=== PATIENT | male | born 1975 | race Asian ===

== ENCOUNTER 2019-09-02 13:20 | Inpatient (IN) | payer OTHER ==
[~2019-09-02] VITALS: Ht 167.6 cm; Wt 79.5 kg
[2019-09-02] MEDS ORDERED: ACETAMINOPHEN 500 MG TABLET ONE (14:15)
[2019-09-02] MEDS ORDERED: SODIUM CHLORIDE FLUSH 10ML SYR IVF ONE (14:30)
[2019-09-02] MEDS ORDERED: ACETAMINOPHEN 500 MG TABLET PO ONE (14:30)
[2019-09-02 14:42] LABS: BASOPHILS # (AUTO) 0.03 x10^3/uL (0-0.1); BASOPHILS % (AUTO) 0 % (0-1); EOSINOPHILS # (AUTO) 0.01 x10^3/uL (0-0.4); EOSINOPHILS % (AUTO) 0 % (1-7); LYMPHOCYTES # (AUTO) 1.55 x10^3/uL (1-3.4); LYMPHOCYTES % (AUTO) 13 % (22-44); MD NO; MEAN CORPUSCULAR HEMOGLOBIN 26.8 pg (27.5-34.5); MEAN CORPUSCULAR HGB CONC 32.7 g/dL (33.2-36.2); MEAN CORPUSCULAR VOLUME 81.8 fL (81-97); MEAN PLATELET VOLUME 9.4 fL (7.4-10.4); MONOCYTES # (AUTO) 0.91 x10^3/uL (0.2-0.8); MONOCYTES % (AUTO) 8 % (2-9); NEUTROPHILS # (AUTO) 9.19 x10^3/uL (1.8-6.8); NEUTROPHILS % (AUTO) 79 % (42-75); PLATELET COUNT 255 x10^3/uL (130-400); RED CELL DISTRIBUTION WIDTH 12.6 % (9.4-14.8)
[2019-09-02] MEDS ORDERED: METF500T17 PO (14:44)
[2019-09-02 14:53] LABS: ALANINE AMINOTRANSFERASE 43 U/L (12-78); ALBUMIN 3.1 g/dL (3.4-5.0); ANION GAP 11 mmol/L (5-15); CALCIUM 8.7 mg/dL (8.5-10.1); CHLORIDE 102 mmol/L (98-107); CREATININE 1.68 mg/dL (0.7-1.3)
[2019-09-02 14:58] LABS: ALKALINE PHOSPHATASE 57 U/L (45-117); BILIRUBIN,TOTAL 0.5 mg/dL (0.2-1.0); TOTAL PROTEIN 8.4 g/dL (6.4-8.2); TROPONIN I < 0.015 ng/mL (0.000-0.045)
--- NOTE | 2019-09-02 16:15 | NUR ---
TO CT VIA [facility]
--- NOTE | 2019-09-02 16:59 | NUR ---
HOSPITALIST AT BEDSIDE
[2019-09-02] MEDS ORDERED: SODIUM CHLORIDE FLUSH 10ML SYR IVF PRN (17:00)
[2019-09-02] MEDS ORDERED: AZITHROMYCIN 500 MG in SODIUM CHLORIDE 0.9% 250 ML IVPB ONE (17:00)
[2019-09-02] MEDS ORDERED: CEFTRIAXONE PMX 1GM/50ML 50 ML IVPB ONE (17:00)
[2019-09-02] MEDS ORDERED: CEFTRIAXONE PMX 1GM/50ML 50 ML ONE (17:08)
[2019-09-02] MEDS ORDERED: ONDANSETRON 2MG/ML, 2ML IVPush PRN (17:30)
[2019-09-02] MEDS ORDERED: OXYcodone/APAP 5/325MG TABLET PO PRN (17:30)
[2019-09-02] MEDS ORDERED: ENOXAPARIN 40 MG/0.4 ML SQ SCH ×2 (17:30→19:00)
[2019-09-02] MEDS ORDERED: ACETAMINOPHEN 325 MG TABLET PO PRN (17:30)
[2019-09-02] MEDS ORDERED: morphine SULFATE 10 MG/ML, 1ML IVPush PRN (17:30)
--- NOTE | 2019-09-02 17:41 | NUR ---
PT [facility]NTO HOSPITAL BED AND ANTIBIOTICS STARTED AFTER BLOOD CULTURES X2
[2019-09-02] MEDS ORDERED: DOXYCYCLINE 100MG TABLET ONE (18:08)
[2019-09-02] MEDS ORDERED: ENOXAPARIN 40 MG/0.4 ML ONE (18:09)
[2019-09-02] MEDS: SODIUM CHLORIDE 0.9% 1,000 ML IV SCH ×2 (18:13→22:13)
--- NOTE | 2019-09-02 19:07 | NUR ---
REPORT TO TO TODD YOUNG
--- NOTE | 2019-09-02 19:47 | NUR ---
pt resting in bed, nad, respirations even and unlabored, monitors in place, call light within reach. provided pt with bsc, medicated per mar. awaiting room for admit
--- NOTE | 2019-09-02 20:06 | NUR ---
attempted to call report, notified that rn will call back for report
[2019-09-02 20:41] VITALS: BP 129/77
[2019-09-02] MEDS: DOXYCYCLINE 100MG CAP PO SCH (21:38)
[2019-09-02] MEDS: INSULIN LISPRO 100 UNITS/ML, PEN SQ-INSULIN SCH (22:13)
[2019-09-02 23:42] LABS: RAPID INFLUENZA A Negative (Negative); RAPID INFLUENZA B Negative (Negative)
[2019-09-03 01:20] VITALS: BP 141/95
[2019-09-03] MEDS ORDERED: ZINC SULFATE 220 MG CAPSULE PO SCH (06:00)
[2019-09-03 06:13] LABS: BASOPHILS # (AUTO) 0.04 x10^3/uL (0-0.1); BASOPHILS % (AUTO) 0 % (0-1); EOSINOPHILS % (AUTO) 0 % (1-7); LYMPHOCYTES # (AUTO) 1.81 x10^3/uL (1-3.4); LYMPHOCYTES % (AUTO) 19 % (22-44); MD NO; MEAN CORPUSCULAR HEMOGLOBIN 27.4 pg (27.5-34.5); MEAN CORPUSCULAR HGB CONC 33.3 g/dL (33.2-36.2); MEAN CORPUSCULAR VOLUME 82.2 fL (81-97); MEAN PLATELET VOLUME 8.8 fL (7.4-10.4); MONOCYTES # (AUTO) 0.94 x10^3/uL (0.2-0.8); MONOCYTES % (AUTO) 10 % (2-9); NEUTROPHILS # (AUTO) 6.63 x10^3/uL (1.8-6.8); NEUTROPHILS % (AUTO) 70 % (42-75); PLATELET COUNT 274 x10^3/uL (130-400); RED BLOOD COUNT 5.41 x10^6/uL (4.38-5.82); RED CELL DISTRIBUTION WIDTH 12.4 % (9.4-14.8)
[2019-09-03 06:25] LABS: ANION GAP 7 mmol/L (5-15); CHLORIDE 104 mmol/L (98-107)
[2019-09-03 06:27] LABS: CREATININE 1.42 mg/dL (0.7-1.3)
[2019-09-03 06:48] VITALS: BP 119/80
[2019-09-03] MEDS: DOXYCYCLINE 100MG CAP PO SCH (08:05)
[2019-09-03] MEDS: INSULIN LISPRO 100 UNITS/ML, PEN SQ-INSULIN SCH ×3 (08:05→16:00)
[2019-09-03] MEDS: SODIUM CHLORIDE 0.9% 1,000 ML IV SCH (08:06)
[2019-09-03] MEDS ORDERED: ASCORBIC ACID 500 MG TABLET PO SCH (09:00)
[2019-09-03] MEDS ORDERED: ACETAMINOPHEN 325 MG TABLET PO PRN (10:00)
[2019-09-03] MEDS ORDERED: DOXY100C2 PO (13:58)
[2019-09-03] MEDS ORDERED: AMOX-291 PO (13:58)
[2019-09-03 14:39] VITALS: BP 131/101
[2019-09-03] MEDS ORDERED: SODIUM CHLORIDE 0.9% 1,000 ML IV SCH (17:04)
== END 2019-09-03 17:31 | disposition home or self-care (01) | DRG 871 ==
LOC: ED 16:04 → EDIP 16:59 → 4NE 20:36
PROVIDERS: ADMIT Internal Medicine Infectious Disease; ATTEND Internal Medicine
DX: A41.89 Other specified sepsis (principal); U07.1 COVID-19; J12.89 Other viral pneumonia; N17.9 Acute kidney failure, unspecified; G47.00 Insomnia, unspecified; E83.51 Hypocalcemia; E11.9 Type 2 diabetes mellitus without complications; Z79.84 Long term (current) use of oral hypoglycemic drugs; Z87.891 Personal history of nicotine dependence; Z83.3 Family history of diabetes mellitus; Z79.899 Other long term (current) drug therapy
CPT/HCPCS: 36415; 71275; 80048; 80053; 82962; 83036; 83605; 84484; 85025; 86738; 87040; 87205; 87400; 87449; 93005; 96372; 96374; 96375; G0378; J0456; J0696; J1650; J1815; J7030; J7050